=== PATIENT | female | born 2000 | race Hispanic/Latino ===

== ENCOUNTER 2021-05-28 15:55 | Emergency (ER) | payer MEDICAID, SELFPAY ==
--- NOTE | 2021-05-28 15:59 | ED.URI ---
HPI - URI/Sore Throat General Chief Complaint: Upper Respiratory Infection Stated Complaint: sob/sweats/headache Time Seen by Provider: 05/28/21 16:08 Source: patient and RN notes reviewed Mode of arrival: ambulatory Limitations: no limitations History of Present Illness HPI Narrative: 21-year-old female presents with concern for 4-day history of body aches, cough, chest congestion, rhinorrhea, nasal congestion, headache. Reports shortness of breath with coughing. She reports she has been vaccinated for Covid. She denies current shortness of breath, loss of sense of taste or smell. MD elicited complaint: cough Related Data Home Medications Medication Instructions Recorded Confirmed etonogestrel [Nexplanon] 1 implant SUBDERMAL ONCE 05/28/21 05/28/21 fluoxetine [Prozac] 40 mg PO DAILY 05/28/21 05/28/21 Allergies Allergy/AdvReac Type Severity Reaction Status Date / Time No Known Allergies Allergy Verified 05/28/21 16:01 Review of Systems Review of Systems: Narrative: CONSTITUTIONAL: Reports malaise, chills, sweats EYES: Denies visual changes, redness, or discharge. ENT: Reports rhinorrhea, congestion. Denies sinus pain, otalgia and sore throat. CARDIOVASCULAR: Denies chest pain, palpitations, or edema. RESPIRATORY: Reports cough, occasional dyspnea. GASTROINTESTINAL: Denies abdominal pain, nausea, vomiting, diarrhea SKIN: Denies rash or itching. MUSCULOSKELETAL: Reports myalgia. NEUROLOGIC: Reports headache. All systems reviewed & are unremarkable except as noted in HPI and below PMFSH Comments At time of signature, agree with nursing past medical, surgical, social and family history. There is no relevant family history pertinent to the presenting complaint Exam Narrative: Exam Narrative: GENERAL: Well-appearing, well-nourished, and in no acute distress. HEAD: Normocephalic EYES: PERRLA, conjunctivae clear ENT: Nares clear, turbinates edematous and erythematous, clear discharge. Mucous membranes moist. TM pearly craven with dull light reflex bilaterally; no tragal tenderness. Oropharynx erythematous without lesions. Tonsils enlarged and without exudate, no drooling, no hoarseness, no trismus, uvula midline. NECK: Supple. No lymphadenopathy CHEST: Clear to auscultation, breath sounds equal. No wheezing, rhonchi, rales, or stridor. No respiratory distress, speaks in full sentences. HEART: Regular rate and rhythm. No murmur heard. SKIN: Warm, dry, no rash. NEURO: Alert and oriented x3. PSYCH: Normal mood and affect Course Course Emergency Course: Patient is aware of diagnosis, understands and agrees to treatment plan. Anticipatory guidance given. Patient agrees to follow-up as directed and is aware of reasons to seek care at the emergency department. Portions of this record may have been created with voice recognition software Vital Signs Vital signs: Reviewed. MDM - URI/Sore Throat MDM Narrative Medical decision making narrative: Differential diagnosis considered: Bryan virus, strep pharyngitis, allergic rhinitis, upper respiratory tract infection, sinusitis, rhinosinusitis, nasopharyngitis. viral pharyngitis, otitis media, otitis externa, pneumonia, bronchitis, viral cough syndrome, viral syndrome, and influenza. Exam findings show no acute concerns or changes; patient is non-toxic appearing and is in no distress. Patient is appropriate for outpatient treatment and follow-up. Lab Data Attestation: I reviewed the patient's lab results. Critical Care Time Critical Care Time Critical Care Time: No Discharge Plan Discharge Clinical Impression: Bronchitis Patient Disposition: Home, Self-Care Condition: Stable Instructions: Viral Syndrome (ED) Additional Instructions: Your Rapid COVID test was negative today. -Your symptoms are likely caused by a virus, and antibiotic does not cure viral illness. -Take strict precautions to prevent the spread of your virus. Be diligent about covering your cough (even
[2021-05-28 16:02] VITALS: BP 104/73; PULSE 111; RESP 16; TEMP 37.1; O2SAT 100
== END 2021-05-28 16:25 | disposition home or self-care (01) ==
PROVIDERS: Emergency Provider Nurse Practitioner
DX: J40 Bronchitis, not specified as acute or chronic (principal); Z20.822 Contact with and (suspected) exposure to COVID-19
CPT/HCPCS: 87426; 99213; C9803; G0463

== ENCOUNTER 2021-05-29 13:46 | Emergency (ER) | payer MEDICAID, SELFPAY ==
[2021-05-29] VITALS (13 sets, daily range): BP systolic 100–110; BP diastolic 61–70; PULSE 80–110; RESP 12–18; TEMP 36.6; O2SAT 97–100
[2021-05-29] MEDS: KETOROLAC 30 MG/ML VIAL (*BKC) IV PUSH (14:20)
[2021-05-29] MEDS: ONDANSETRON INJ 4 MG/2 ML VIAL IV PUSH (14:20)
[2021-05-29] MEDS: SODIUM CHLORIDE 0.9% IV 1,000 ML 999 ML IV CONT (14:20)
--- NOTE | 2021-05-29 14:38 | ED.GENADULT ---
HPI - General Adult General Chief complaint: Headache Stated complaint: n/v Time Seen by Provider: 05/29/21 13:52 Source: patient and RN notes reviewed Mode of arrival: ambulatory Limitations: no limitations History of Present Illness HPI narrative: Patient is a 21-year-old female who presents to emergency department for evaluation of headache with congestion rhinorrhea nonproductive cough has had some emesis this has been going on for several days was seen at urgent care yesterday diagnosed with upper respiratory infection discharged home with medications but continues to not feel well patient notes she was fully vaccinated for COVID-19 denies any sick contacts or other complaints Related Data Home Medications Medication Instructions Recorded Confirmed etonogestrel [Nexplanon] 1 implant SUBDERMAL ONCE 05/28/21 05/28/21 fluoxetine [Prozac] 40 mg PO DAILY 05/28/21 05/28/21 Allergies Allergy/AdvReac Type Severity Reaction Status Date / Time No Known Allergies Allergy Verified 05/29/21 13:53 Review of Systems Review of Systems: All systems reviewed & are unremarkable except as noted in HPI and below PMFSH Social History Social History (Updated 05/29/21 @ 14:40 by Josep Valle PA-C) Smoking status: Never smoker Gender identity (if verbalized by the patient): Female Exam Narrative: Exam Narrative: GENERAL: Ill-appearing, well-nourished, and in no acute distress. HEAD: Normocephalic, atraumatic. EYES: PERRLA and EOMI. ENT: Nares clear, no rhinorrhea or epistaxis. Mucous membranes moist. Oropharynx without tonsillar hypertrophy exudate or other lesions. Bilateral TMs pearly craven nonbulging NECK: Supple. No adenopathy or masses. CHEST: Clear to auscultation. No respiratory distress. No wheezes rales or rhonchi HEART: Regular rate and rhythm. No murmur heard. Normal peripheral pulses. ABDOMEN: Soft, nontender, nondistended EXTREMITIES: Normal range of motion. No edema. SKIN: Warm, dry, no rash. NEURO: No focal deficits. Alert and oriented x3. Cranial nerves II through XII grossly intact PSYCH: Normal mood and affect. Course Course Emergency Course: Patient hydrated evaluated the emergency department resting comfortably at this time feeling better with medications will be discharged home provided with follow-up with primary care agreeing to do so ABCs and vital signs intact and stable Vital Signs Vital signs: Vital Signs Temperature 97.9 F 05/29/21 13:51 Pulse Rate 110 H 05/29/21 13:51 Respiratory Rate 18 05/29/21 13:51 Blood Pressure 110/70 05/29/21 13:51 Pulse Oximetry 99 05/29/21 13:51 Temperature 97.9 F 05/29/21 13:51 Pulse Rate 110 H 05/29/21 13:51 Respiratory Rate 18 05/29/21 13:51 Blood Pressure 110/70 05/29/21 13:51 Pulse Oximetry 99 05/29/21 13:51 Medical Decision Making MDM Narrative Medical decision making narrative: Patient in the room no distress aware of case findings treatment plan diagnosis agreeing to follow-up as instructed will return if symptoms worsen or concerns Vital Signs Vital Signs: Vital Signs Temperature 97.9 F 05/29/21 13:51 Pulse Rate 110 H 05/29/21 13:51 Respiratory Rate 18 05/29/21 13:51 Blood Pressure 110/70 05/29/21 13:51 Pulse Oximetry 99 05/29/21 13:51 Temperature 97.9 F 05/29/21 13:51 Pulse Rate 110 H 05/29/21 13:51 Respiratory Rate 18 05/29/21 13:51 Blood Pressure 110/70 05/29/21 13:51 Pulse Oximetry 99 05/29/21 13:51 Lab Data Labs: Lab Results 05/29/21 Range/Units 14:36 Urine Color Yellow (Yellow) Urine Appearance Clear (Clear) Urine pH 6.0 (5.0-9.0) Ur Specific [place] 1.009 (1.001-1.035) Urine Protein 1+ H (Negative) mg/dL Urine Glucose (UA) Negative (Negative) mg/dL Urine Ketones 2+ H (Negative) mg/dL Ur Blood (Man) Negative (Negative) Urine Nitrate Negative (Negative) Urine Bilirubin Negative (Negative) Urine Urobilinogen Negat
[2021-05-29 14:47] LABS: Add Urine Microscopic? YES; Appearance Urine Clear (Clear); Bacteria Urine Trace /hpf; Bilirubin Urine Negative (Negative); Blood Urine Negative (Negative); Color Urine Yellow (Yellow); Glucose Urine UA Negative (Negative); Ketones Urine 2+ mg/dL (Negative); Leukocyte Esterase Ur Trace LEU/UL (Negative); Mucus Urine Few /lpf; Nitrate Urine Negative (Negative); Protein Urine 1+ mg/dL (Negative); RBC Urine 0-2 /hpf (0-2); Specific Grav Ur 1.009 (1.001-1.035); Squamous Epithelial Cell Urine Moderate /hpf (Few); Urobilinogen Urine Negative mg/dL (<2.0)
== END 2021-05-29 16:31 | disposition home or self-care (01) ==
PROVIDERS: Emergency Medicine Emergency Medical Services; Emergency Provider Emergency Medicine
DX: R51.9 Headache, unspecified (principal)
CPT/HCPCS: 81001; 81025; 87804; 96361; 96374; 96375; 99284; J1885; J2405; J7030

== ENCOUNTER 2021-05-31 00:03 | Observation (INO) | payer MEDICAID, SELFPAY ==
[2021-05-31] VITALS (13 sets, daily range): BP systolic 104–130; BP diastolic 63–75; PULSE 83–113; RESP 16–40; TEMP 36.2–37.4; O2SAT 94–100; BMI 22.7
--- NOTE | ~2021-05-31 | CT_ITS ---
EXAMINATION: CTA chest PE abdomen pel DATE: 05/31/2021 03:15 INDICATION: Chest pain, abdominal pain, nausea and vomiting. Elevated white blood cell count of 22,00 0. TECHNIQUE: Computed tomography angiography (CTA) of the chest was performed with 100 mL Omnipaque-350 intravenous contrast timed to evaluate the pulmonary arteries. Coronal maximum intensity projection 3D-reconstructions were created by the technologist. Automated exposure control and iterative reconst ruction technique were employed. Exam dose: 470.35 mGy-cm total exam DLP. COMPARISON: None. FINDINGS: There is moderate opacification the pulmonary arteries and no evidence of pulmonary embolis m. No thoracic aortic aneurysm or dissection is evident. Normal heart size. No pericardial or pleural ef fusion. Mild hilar and mediastinal lymph node prominence may be reactive, with diffuse bilateral pulmonary gr oundglass infiltrates noted. Normal morphology of the adrenal glands. Included upper abdominal structures are unremarkable. Included skeletal structures are unremarkable. IMPRESSION: No evidence of pulmonary embolism Diffuse bilateral pulmonary groundglass infiltrates, suggesting infectious or inflammatory process Reviewed, dictated and finalized at [facility] Reviewed, dictated and finalized at [facility]. IMPRESSION: No evidence of pulmonary embolism Diffuse bilateral pulmonary groundglass infiltrates, suggesting infectious or i nflammatory process
[2021-05-31 00:24] LABS: Basophils Absolute Auto 0.1 K/mm3 (0.0-0.1); Basophils Percent Auto 0.3 % (0.2-1.2); Hemoglobin 12.5 g/dL (12.0-15.0); Immature Granulocyte Absolute 0.18 K/mm3 (0.00-0.031); Immature Granulocyte Percent A 0.8 % (0-0.5); Lymphocytes Absolute Auto 1.02 K/mm3 (0.9-3.2); Lymphocytes Percent Auto 4.5 % (18.3-44.2); Mean Corpuscular HGB Conc 32.9 g/dl (32-36); Mean Corpuscular Hemoglobin 29.9 pg (26-34); Mean Corpuscular Volume 90.9 fl (80-100); Mean Platelet Volume 9.2 fl (7.4-10.4); Monocytes Absolute Auto 0.4 K/mm3 (0.1-0.6); Monocytes Percent Auto 1.5 % (2.6-8.5); Neutrophils Percent Auto 92.9 % (45.5-73.1); Platelet Count Result 376 k/mm3 (150-375); Red Blood Count 4.18 M/mm3 (4.2-5.4); Red Cell Distribution Width 12.8 % (11.5-14.5); White Blood Count 22.6 K/mm3 (4.5-10.0)
[2021-05-31 00:45] LABS: Alanine Aminotransferase 20 U/L (4-35); Albumin Level 4.3 g/dL (3.5-5.1); Alkaline Phosphatase 160 U/L (38-126); Anion Gap 12 mmol/L (8-16); Aspartate Amino Transferase 54 U/L (14-36); Bilirubin,Total 1.6 mg/dL (0.2-1.3); Blood Urea Nitrogen 3 mg/dL (7-17); Calcium 9.4 mg/dL (8.4-10.2); Carbon Dioxide 29 mmol/L (22-30); Chloride 94 mmol/L (98-107); Estimated CRCL calculation 127 ml/min; Estimated Glomerular Filt Rate > 60; Glucose 112 mg/dL (65-105); Lipase 39 U/L (23-300); Sodium 135 mmol/L (137-145)
[2021-05-31 02:20] LABS: Add Urine Microscopic? YES; Appearance Urine Clear (Clear); Bacteria Urine Trace /hpf; Bilirubin Urine Negative (Negative); Blood Urine Negative (Negative); Color Urine Yellow (Yellow); Glucose Urine UA Negative (Negative); Ketones Urine Trace mg/dL (Negative); Leukocyte Esterase Ur Negative LEU/UL (Negative); Mucus Urine Rare /lpf; Nitrate Urine Negative (Negative); Protein Urine Negative (Negative); RBC Urine 0-2 /hpf (0-2); Specific Grav Ur 1.004 (1.001-1.035); Squamous Epithelial Cell Urine Rare /hpf (Few)
[2021-05-31] MEDS: ONDANSETRON INJ 4 MG/2 ML VIAL IV PUSH (02:56)
[2021-05-31] MEDS: KETOROLAC 30 MG/ML VIAL (*BKC) IV PUSH (02:56)
[2021-05-31] MEDS: SODIUM CHLORIDE 0.9% IV 1,000 ML 999 ML IV CONT ×2 (02:56→04:10)
[2021-05-31 03:51] LABS: Lactic Acid Reflex 0.8 mmol/L (0.7-2.1)
--- NOTE | 2021-05-31 04:04 | PC.NURSE ---
1000 mL of IV Normal Saline ordered per EDP Henrique verbal order read back.
--- NOTE | 2021-05-31 04:10 | PC.NURSE ---
updated pt and family member. no requests at this time. pt states she is feeling better.
--- NOTE | 2021-05-31 05:09 | ED.GENADULT ---
HPI - General Adult General Chief complaint: Nausea/Vomiting/Diarrhea Stated complaint: nausea/ headache Time Seen by Provider: 05/31/21 02:15 History of Present Illness HPI narrative: Patient 21-year-old female who presents the emergency department with chief complaint of nausea vomiting generalized malaise and body aches. Patient was seen at [facility] and then seen in the emergency department after she had had a headache and nausea and vomiting. Patient was originally treated for bronchitis by the medical center and has been on steroids the patient has been having nausea vomiting and not able to take down the medications. The patient states that she has had a headache that is worse whenever she coughs has been coughing and not able to control the coughing at home. Patient reports that she has not had any diarrhea. Patient had a rapid Covid test done at [facility] that was negative Related Data Home Medications Medication Instructions Recorded Confirmed etonogestrel [Nexplanon] 1 implant SUBDERMAL ONCE 05/28/21 05/31/21 fluoxetine [Prozac] 40 mg PO DAILY 05/28/21 05/31/21 Allergies Allergy/AdvReac Type Severity Reaction Status Date / Time No Known Allergies Allergy Verified 05/31/21 02:00 Review of Systems Review of Systems: Narrative: A 10 system review of systems was completed on the patient and is negative except for what is stated in the HPI. Nursing and ancillary documentation was reviewed. [facility] Family History Family History (Updated 05/31/21 @ 06:35 by Rachel Dong RN) Other Unknown family medical history Social History Social History Smoking status: Current some day smoker Tobacco type: cigarettes Alcohol intake: never Substance use: never Gender identity (if verbalized by the patient): Female Spiritual care concerns: No Exam Narrative: Exam Narrative: GENERAL: Well-appearing, well-nourished, and in no acute distress. HEAD: Normocephalic, atraumatic. EYES: PERRLA and EOMI. ENT: Nares clear, no rhinorrhea or epistaxis. Mucous membranes moist. NECK: Supple. CHEST: Clear to auscultation. No respiratory distress. HEART: Regular rate and rhythm. No murmur heard. Normal peripheral pulses. ABDOMEN: Soft, nontender, nondistended, normal active bowel sounds. EXTREMITIES: Normal range of motion. No edema. SKIN: Warm, dry, no rash. NEURO: No focal deficits. Alert and oriented x3. PSYCH: Normal mood and affect. Course Course Emergency Course: Patient received IV fluids antiemetics and ketorolac in the emergency department. Because the patient had abdominal discomfort and has had persistent nausea and vomiting helical imaging was obtained since the patient also had discomfort in her chest and continual cough and the patient was already in CT CT chest was showing evidence of diffuse patchy groundglass opacities consistent with infection CT scan of the abdomen pelvis showed evidence of fluid and gas-filled small bowel consistent with ileus versus enteritis Vital Signs Vital signs: Vital Signs Temperature 36.3 C L 05/31/21 00:08 Pulse Rate 113 H 05/31/21 00:08 Respiratory Rate 16 05/31/21 00:08 Blood Pressure 126/65 05/31/21 00:08 Pulse Oximetry 97 05/31/21 00:08 Temperature 36.2 C L 05/31/21 06:16 Pulse Rate 94 05/31/21 06:16 Respiratory Rate 18 05/31/21 06:16 Blood Pressure 114/66 05/31/21 06:16 Pulse Oximetry 94 05/31/21 06:16 Medical Decision Making Vital Signs Vital Signs: Vital Signs Temperature 36.3 C L 05/31/21 00:08 Pulse Rate 113 H 05/31/21 00:08 Respiratory Rate 16 05/31/21 00:08 Blood Pressure 126/65 05/31/21 00:08 Pulse Oximetry 97 05/31/21 00:08 Temperature 36.2 C L 05/31/21 06:16 Pulse Rate 94 05/31/21 06:16 Respiratory Rate 18 05/31/21 06:16 Blood Pressure 114/66 05/31/21 06:16 Pulse Oximetry 94 05/31/21 06:16 Lab Data Resu
--- NOTE | 2021-05-31 05:27 | PM.IMHP ---
H&P: HPI History of Present Illness Date/Time: 05/31/21 05:27 Chief Complaint: Body aches, generalized weakness Narrative: Patient 21-year-old female who presents the emergency department with chief complaint of nausea vomiting generalized malaise and body aches. the symptoms started since May 26. Patient was seen at [facility] on May 28 And was given Medrol Dosepak for bronchitis. She was tested for COVID which came back negative. Subsequently she was then seen in this ED for similar symptoms and was discharged for home care for viral syndrome. She comes back again today with worsening symptoms of nausea vomiting not able to take medication and headache which gets worse whenever she coughs. She also complains of feeling short of breath. She has not noted to be hypoxic however she is noted to be tachypneic and was tachycardic on admission. On evaluation in the ED she was noted to have severe leukocytosis at 22,[address] chest,abdomen and pelvis with bilateral patchy ground-glass opacities consistent with pneumonia. She is getting admitted for further evaluation and treatment. She is reswabbed for COVID in the ED. Review of Systems Review of Systems: Narrative: - CONSTITUTIONAL: Denies weight loss, reports fever and chills. - HEENT: Denies changes in vision and hearing - RESPIRATORY: reports SOB and cough. - CV: Denies palpitations and CP. - GI: Denies abdominal pain, reports nausea, vomiting and denies diarrhea. - : Denies dysuria and urinary frequency. - MSK: reports myalgia and denies joint pain. - SKIN: Denies rash and pruritus. - NEUROLOGICAL: reports headache and denies syncope. - PSYCHIATRIC: Denies recent changes in mood. Denies anxiety and depression. All systems reviewed & are unremarkable except as noted in HPI and below Constitutional: Constitutional: Reports fatigue and Reports weakness Neurologic: Reports weakness Endocrine: Endocrine: Reports fatigue [facility] Family History Family History (Updated 05/31/21 @ 06:35 by Rachel Dong RN) Other Unknown family medical history Social History Social History Smoking status: Never smoker Gender identity (if verbalized by the patient): Female Meds Home Medications and Allergies Home Medications Medication Instructions Recorded Confirmed Type etonogestrel [Nexplanon] 1 implant SUBDERMAL ONCE 05/28/21 05/28/21 History fluoxetine [Prozac] 40 mg PO DAILY 05/28/21 05/28/21 History methylprednisolone [Medrol ([place])] See Rx Instructions .ROUTE 05/28/21 Rx .COMPLEX #21 each promethazine-DM 5 ml PO Q4-6H PRN #120 ml 05/28/21 Rx famotidine [Pepcid] 20 mg PO BID #14 tablet 05/29/21 Rx loratadine [Claritin] 10 mg PO DAILY PRN #10 tablet 05/29/21 Rx promethazine 25 mg PO QID PRN #10 tablet 05/29/21 Rx Allergies Allergy/AdvReac Type Severity Reaction Status Date / Time No Known Allergies Allergy Verified 05/31/21 02:00 Vital Signs Vital Signs - 24 hr 05/31/21 00:08 05/31/21 01:37 05/31/21 03:17 Temperature 97.3 F L 99.4 F Pulse Rate 113 H 102 H 102 H Respiratory Rate 16 29 H 31 H Blood Pressure 126/65 130/67 Pulse Oximetry 97 98 97 05/31/21 03:28 05/31/21 04:07 Temperature Pulse Rate 95 89 Respiratory Rate 40 H 22 H Blood Pressure 114/63 104/64 Pulse Oximetry 97 100 Exam Narrative: Exam Narrative: GENERAL: Well-appearing, well-nourished, and in no acute distress. HEAD: Normocephalic, atraumatic. EYES: PERRLA and EOMI. ENT: Nares clear, no rhinorrhea or epistaxis. Mucous membranes moist. NECK: Supple. CHEST: Clear to auscultation. Tachypneic not in severe respiratory distress HEART: Regular rate and rhythm. No murmur heard. Normal peripheral pulses. ABDOMEN: Soft, nontender, nondistended, normal active bowel sounds. EXTREMITIES: Normal range of motion. No edema. SKIN: Warm, dry, no rash. NEURO: No focal deficits. A
--- NOTE | 2021-05-31 05:31 | PC.NURSE ---
PO challenged pt. pt kept water down but states it made her feel nauseas.
[2021-05-31 07:54] LABS: D Dimer 2.08 ug/mL (<0.48)
[2021-05-31 07:57] LABS: Lactate Dehydrogenase 990 U/L (313-618); Magnesium 2.1 mg/dL (1.6-2.3)
[2021-05-31] MEDS: SODIUM CHLORIDE 0.9% IV 1,000 ML 125 ML IV CONT (08:39)
[2021-05-31] MEDS: DEXAMETHASONE SOD PHOS INJ 4 MG/ML VIAL 6 MG IV PUSH (08:43)
[2021-05-31 08:44] LABS: Procalcitonin 0.3 ng/mL
--- NOTE | 2021-05-31 11:32 | PC.NURSE ---
Pt unhooked her IV, after being told to take IV with her to the bathroom. She had removed end of IV, so was bleeding down her arm, and was yelling and crying because she was bleeding. Pt had potassium running at 50ml/hr, and pt began to cry and yell that she couldn't take it. Turned it down twice and pt continued to yell and cry. Tried to run NS, and pt began to scream it is killing her. IV flushes, and there is no evidence of IV being infiltrated or any problems with IV. Pt continues to cry stating that people are always mean to her, and that so far we have treated her nicely. Pt refused to allow IV to be hooked back up or a new one started at this time. Notifying HARRY Simmons.
[2021-05-31 12:12] LABS: Anion Gap 7 mmol/L (8-16); Bilirubin,Total 1.1 mg/dL (0.2-1.3); Blood Urea Nitrogen 4 mg/dL (7-17); Calcium 8.7 mg/dL (8.4-10.2); Carbon Dioxide 29 mmol/L (22-30); Chloride 100 mmol/L (98-107); Estimated CRCL calculation 150 ml/min; Estimated Glomerular Filt Rate > 60; Glucose 136 mg/dL (65-105); Potassium 3.1 mmol/L (3.4-5.0); Sodium 136 mmol/L (137-145)
[2021-05-31 12:13] LABS: Alanine Aminotransferase 19 U/L (4-35); Albumin Level 3.8 g/dL (3.5-5.1); Alkaline Phosphatase 141 U/L (38-126); Aspartate Amino Transferase 44 U/L (14-36)
--- NOTE | 2021-05-31 12:40 | PM.IMPN ---
Progress Note: A&P Assessment and Plan (1) Sepsis: Code(s): A41.9 - Sepsis, unspecified organism Status: Acute Assessment and Plan: The patient is a 21-year-old woman with a history of depression, who presented to the emergency room with increased malaise, body aches, nausea, vomiting, and coughwhich began on 05/26/2021. She went to a local urgent care on 05/28/2021 was given a Medrol dose pack for possible bronchitis. she continued to have symptoms so she came back to the emergency room 05/29/21 where she had a negative COVID swab and was prescribed Claritin, promethazine for nausea, and famotidine. The patient continued to have symptoms of came back to the emergency room on 05/30/2021, Where she was found to have leukocytosis, tachycardia, tachypnea and had a CTA of her chest, abdomen and pelvis which found no PE, diffuse bilateral pulmonary ground-glass infiltrates, suggesting infectious or inflammatory process. she was admitted in the hospital for sepsis in the setting of pneumonia. Started on IV antibiotics, IV fluid hydration and further monitoring. She was also reswabbed walked for COVID which is still pending at this time and in isolation. Patient's vitals are stable today other than some tachypnea, 100% oxygen on room air. Continue IV antibiotics Will recheck labs in the morning Blood cultures pending Ordered Respiratory culture, not collected D-dimer, LDH elevated , ferritin high normal continue monitoring vitals and leukocytosis. Bronchodilators scheduled and p.r.n. (2) Pneumonia: Qualifiers: Laterality: bilateral Lung location: unspecified part of lung Pneumonia type: due to unspecified organism Qualified Code(s): J18.9 - Pneumonia, unspecified organism Code(s): J18.9 - Pneumonia, unspecified organism Status: Acute Assessment and Plan: continue IV antibiotics. She was also started on dexamethasone for treatment of possible COVID continue monitoring. (3) Leukocytosis: Qualifiers: Leukocytosis type: unspecified Qualified Code(s): D72.829 - Elevated white blood cell count, unspecified Code(s): D72.829 - Elevated white blood cell count, unspecified Status: Acute Assessment and Plan: See above under sepsis (4) Hypokalemia: Code(s): E87.6 - Hypokalemia Status: Acute Assessment and Plan: Most likely due to nausea, vomiting, and decreased appetite trying to supplement with IV potassium but it caused too much burning to her IV. I will switch this to oral potassium 40 mEq and recheck in the morning. Continue monitoring. (5) Ileus: Code(s): K56.7 - Ileus, unspecified Status: Acute Assessment and Plan: Had bowel movement. Resolved. (6) Intractable nausea and vomiting: Code(s): R11.2 - Nausea with vomiting, unspecified Status: Acute Assessment and Plan: Resolved at this time. PRN antiemetics. (7) Suspected COVID-19 virus infection: Code(s): Z20.822 - Contact with and (suspected) exposure to COVID-19 Status: Acute Assessment and Plan: Was vaccinated with [employer]. Swabbed pending. Isolated. Time Spent With Patient Time with patient: 25 - 35 minutes Subjective Date/time seen: 05/31/21 12:40 Interval history: Date of Service 05/31/21: The patient reports feeling better than when she came into the hospital. She is breathing better, has some more energy today. She did have a bowel movement. she does report chills. she denies any more nausea or vomiting at this time. She is t
[2021-05-31] MEDS: FLUoxetine HCL 20 MG CAPSULE 40 MG PO (13:44)
[2021-05-31] MEDS: POTASSIUM CHLORIDE 20 MEQ TABLET 40 MEQ PO (13:44)
[2021-05-31] MEDS: PANTOPRAZOLE 40 MG TABLET PO (13:44)
[2021-05-31 16:16] LABS: SARS-CoV-2 RNA PCR Negative
[2021-05-31] MEDS: BENZOCAINE/MENTHOL (*BKC) 18 EA LOZENGE 1 LOZENGE PO (19:40)
[2021-05-31] MEDS: guaiFENesin/DEXTROMETHORPHAN 10 ML UDC 5 ML PO (19:40)
[2021-06-01 06:00] VITALS: BP 108/76; PULSE 86; RESP 18; TEMP 36.3; O2SAT 96
[2021-06-01] MEDS: levoFLOXacin 750 MG TABLET PO (06:08)
[2021-06-01] MEDS: BENZONATATE 100 MG CAPSULE PO (06:09)
[2021-06-01 06:17] LABS: Basophils Absolute Auto 0.1 K/mm3 (0.0-0.1); Basophils Percent Auto 0.2 % (0.2-1.2); Hematocrit 32.6 % (37.0-47.0); Immature Granulocyte Absolute 0.29 K/mm3 (0.00-0.031); Lymphocytes Absolute Auto 0.65 K/mm3 (0.9-3.2); Lymphocytes Percent Auto 2.3 % (18.3-44.2); Mean Corpuscular HGB Conc 33.7 g/dl (32-36); Mean Corpuscular Volume 88.8 fl (80-100); Mean Platelet Volume 9.4 fl (7.4-10.4); Monocytes Absolute Auto 0.6 K/mm3 (0.1-0.6); Monocytes Percent Auto 2.1 % (2.6-8.5); Neutrophils Absolute Auto 26.8 K/mm3 (1.3-6.7); Neutrophils Percent Auto 94.4 % (45.5-73.1); Platelet Count Result 388 k/mm3 (150-375); Red Blood Count 3.67 M/mm3 (4.2-5.4); Red Cell Distribution Width 12.8 % (11.5-14.5); White Blood Count 28.4 K/mm3 (4.5-10.0)
[2021-06-01 06:28] LABS: Anion Gap 9 mmol/L (8-16); Blood Urea Nitrogen 5 mg/dL (7-17); Carbon Dioxide 29 mmol/L (22-30); Chloride 105 mmol/L (98-107); Estimated CRCL calculation 150 ml/min; Estimated Glomerular Filt Rate > 60; Glucose 130 mg/dL (65-105); Magnesium 2.5 mg/dL (1.6-2.3); Potassium 3.6 mmol/L (3.4-5.0); Sodium 143 mmol/L (137-145)
[2021-06-01] MEDS: LORATADINE 10 MG TABLET PO (08:51)
[2021-06-01] MEDS: FLUoxetine HCL 20 MG CAPSULE 40 MG PO (08:51)
[2021-06-01] MEDS: ACETAMINOPHEN 325 MG TABLET 650 MG PO (08:51)
[2021-06-01] MEDS: SACCHAROMYCES BOULARDII 250 MG CAPSULE PO (08:52)
[2021-06-01] MEDS: PANTOPRAZOLE 40 MG TABLET PO (08:53)
[2021-06-01] MEDS: guaiFENesin/DEXTROMETHORPHAN 10 ML UDC 5 ML PO (09:08)
--- NOTE | 2021-06-01 10:31 | PC.NURSE ---
Pt has been A&O x 4, however becomes very tearful and child like. She randomly jumps from subject to subject. Pt will be screaming one min and talking like a small child the next. Pt continues to refuse an IV, however will take pills. Pt is very emotional and is difficult to re-direct and keep on task.
[2021-06-01] MEDS: IBUPROFEN 600 MG TABLET PO (10:47)
[2021-06-01 11:02] LABS: Lactate Dehydrogenase 1128 U/L (313-618)
[2021-06-01 14:00] VITALS: BP 122/67; PULSE 72; RESP 20; TEMP 36.2; O2SAT 99
--- NOTE | 2021-06-01 15:48 | PM.DS ---
DS: Admitting Diagnosis Admitting Diagnosis Admitting Diagnosis: Weakness DS: Discharge Diagnosis Discharge Diagnosis (1) Sepsis: Code(s): A41.9 - Sepsis, unspecified organism Status: Acute Assessment and Plan: The patient is a 21-year-old woman with a history of depression, who presented to the emergency room with increased malaise, body aches, nausea, vomiting, and coughwhich began on 05/26/2021. She went to a local urgent care on 05/28/2021 was given a Medrol dose pack for possible bronchitis. she continued to have symptoms so she came back to the emergency room 05/29/21 where she had a negative COVID swab and was prescribed Claritin, promethazine for nausea, and famotidine. The patient continued to have symptoms of came back to the emergency room on 05/30/2021, Where she was found to have leukocytosis, tachycardia, tachypnea and had a CTA of her chest, abdomen and pelvis which found no PE, diffuse bilateral pulmonary ground-glass infiltrates, suggesting infectious or inflammatory process. she was admitted in the hospital for sepsis in the setting of pneumonia. Started on IV antibiotics, IV fluid hydration and further monitoring. She was also reswabbed for COVID and came back negative. the patient is feeling much better today. Her vitals remained stable, afebrile, blood pressure 122/67, non tachycardic at 72 beats per minute, oxygenation normal 99% on room air, non tachycardic. The patient was stable with her medications being switched to p.o. since she had issues with her IV. She is eating and drinking without any issues. She has more strength. she still having a few loose stools but this is most likely due to the antibiotics and I started a probiotic. Her labs showed increasing leukocytosis and neutrophil count but she was also on dexamethasone which was started by the admitting provider because of the concerns of COVID-19. She otherwise appears to be improved overall, feeling better, smiling with stable vitals. Blood cultures are negative to date. Ordered Respiratory culture, not collected since she has a dry cough. LDH, CRP. She also has slight elevation of her AST and alk-phos. normal lactic acid level and procalcitonin. Based on the patient's labs, CT chest on arrival, nonproductive cough, pain with deep inspiration, this all clinically looks like COVID-19. I explained to the patient and her boyfriends grandmother, Sam, with the patients permission, that she does appear to have an atypical pneumonia and there are some concerns for COVID. I do recommend isolating for 10 days from when symptoms started which was 05/26/2021. I explained she needs to get a pulse oximeter to continue monitoring her oxygen saturations. I will continue her on antibiotics for total of 7 days, she already has a prescription for a Medrol Dosepak which I told her to complete, she also has promethazine that was prescribed prior in [place] she has nausea. She understands the need to continue drinking plenty of fluids, eating well and stain active to prevent any blood clots from forming. The patient understands, agrees with the plan all questions answered. She was given a work note. The patient has plans to be isolated once discharged. (2) Pneumonia: Qualifiers: Laterality: bilateral Lung location: unspecified part of lung Pneumonia type: due to unspecified organism Qualified Code(s): J18.9 - Pneumonia, unspecified organism Code(s): J18.9 - Pneumonia, unspecified organism Status: Acute Assessment and Plan: (3) Leukocytosis: Qualifiers: Leukocytosis type: unspecified Qualified Code(s): D72.829 - Elevated white blood cell count, unspecified Code(s): D72.829 - Elevated white blood cell count, unspecified Status: Acute Assessment and Plan:
--- NOTE | 2021-06-01 17:02 | PC.NURSE ---
Pt is being discharged. Pt's IV was removed yesterday. Discharge paperwork was reviewed with the pt and her mother, and both exhibited good understanding of discharge instructions. Pt will be assisted to the front, in a wheelchair, by staff.
== END 2021-06-01 17:45 | disposition home or self-care (01) ==
LOC: ANHED 05:17 → ANH3MEDSUR 05:28
PROVIDERS: Physician Assistant; Admitting Provider Internal Medicine; Emergency Provider Emergency Medicine; Visit Provider Internal Medicine
DX: A41.9 Sepsis, unspecified organism (principal); J18.9 Pneumonia, unspecified organism; D72.829 Elevated white blood cell count, unspecified; E87.6 Hypokalemia; R53.81 Other malaise; Z20.822 Contact with and (suspected) exposure to COVID-19
CPT/HCPCS: 36415; 71275; 74177; 80048; 80053; 81001; 81025; 82728; 83605; 83615; 83690; 83735; 84145; 85025; 85380; 86140; 87040; 96361; 96365; 96375; 99285; A9270; C9803; G0378; G0379; J0456; J0696; J1100; J1885; J2405; J3480; J7030; Q9967; U0003; U0005

== ENCOUNTER 2021-07-27 19:24 | Emergency (ER) | payer OTHER, SELFPAY ==
[2021-07-27 19:36] VITALS: BP 94/42; PULSE 103; RESP 16; TEMP 36.8; O2SAT 98
--- NOTE | 2021-07-27 19:36 | ED.GENADULT ---
HPI - General Adult General Chief complaint: Unspecified Stated complaint: HIP PAIN/HEADACHE Source: patient and RN notes reviewed Mode of arrival: ambulatory History of Present Illness HPI narrative: This is a 21-year-old female that was recently diagnosed with Covid back in May. Patient is here today complaining of bilateral hip pain and a chronic headache. Patient notes that she is been discharged from the hospital she has been experiencing this bilateral hip pain and chronic headaches. I explained to patient that this is probably due to side affects of Covid. The patient denies SOB, CP, palpitation, extremity numbness, lightheadedness, dizziness, constipation, diarrhea, chills, or fever. She has been taking ndtu-[id number]-[id number] headache medication once a day for the last couple days which has given her relief. She has not taken anything for her bilateral hip pain Related Data Home Medications Medication Instructions Recorded Confirmed Nexplanon 1 implant SUBDERMAL ONCE 05/28/21 05/31/21 fluoxetine [Prozac] 40 mg PO DAILY 05/28/21 05/31/21 Allergies Allergy/AdvReac Type Severity Reaction Status Date / Time No Known Allergies Allergy Verified 05/31/21 02:00 Review of Systems Review of Systems: A 14 organ system Review of Systems was performed and pertinent positives included in the HPI, otherwise remaining ROS is negative. [facility] Family History Family History Other Unknown family medical history Social History Social History Smoking status: Current some day smoker Tobacco type: cigarettes Alcohol intake: never Substance use: never Gender identity (if verbalized by the patient): Female Spiritual care concerns: No Exam Narrative: GENERAL: This is a well-nourished, well-developed patient, in no apparent distress. HEAD: normocephalic, atraumatic. EYES: PERRL. Sclera clear/white. Vision is grossly intact. EARS: External ears normal, auditory canals clear and without drainage, TMs normal without perforation. Hearing grossly intact. NOSE: External nose normal with no obvious nasal discharge, nares without redness, no rhinorrhea. THROAT: Mucous membranes moist, posterior pharynx clear. NECK: Neck supple, non-tender without lymphadenopathy, masses or thyromegaly. CARDIOVASCULAR: Regular rate and rhythm without murmurs, gallops, or rubs. RESPIRATORY: Clear to auscultation. Breath sounds equal bilaterally. No wheezes, rales, or rhonchi. GASTROINTESTINAL: Abdomen soft, non-tender, nondistended. Bowel sounds are active. No hepato-splenomegaly, or palpable masses. No guarding. SKIN: warm, intact with no suspicious lesions or rash, good texture and turgor. NEURO: awake, alert, and oriented to person, place and time. There were no obvious focal neurologic abnormalities. Steady gait EXTREMITIES: Normal range of motion. No edema. No calf tenderness. Negative Homans sign bilaterally. BACK: Nontender without deformity or crepitance. No flank tenderness. Course Course Emergency Course: Patient given Flexeril and instructed to continue her pgib-mpz-ahpelpy headache medication Vital Signs Vital signs: Vital Signs Temperature 98.2 F 07/27/21 19:36 Pulse Rate 103 H 07/27/21 19:36 Respiratory Rate 16 07/27/21 19:36 Blood Pressure 94/42 L 07/27/21 19:36 Pulse Oximetry 98 07/27/21 19:36 Temperature 98.2 F 07/27/21 19:36 Pulse Rate 103 H 07/27/21 19:36 Respiratory Rate 16 07/27/21 19:36 Blood Pressure 94/42 L 07/27/21 19:36 Pulse Oximetry 98 07/27/21 19:36 Medical Decision Making Differential Diagnosis Differential Diagnosis: Covid long jostin Vital Signs Vital Signs: Vital Signs Temperature 98.2 F 07/27/21 19:36 Pulse Rate 103 H 07/27/21 19:36 Respiratory Rate 16 07/27/21 19:36 Blood Pressure 94/42 L 07/27/21 19:36 Pulse Oximetry 98 07/27/21 19:36
== END 2021-07-27 19:58 | disposition home or self-care (01) ==
PROVIDERS: Emergency Provider Nurse Practitioner; PCP Internal Medicine
DX: R52 Pain, unspecified (principal); R51.9 Headache, unspecified; B94.8 Sequelae of other specified infectious and parasitic diseases; F17.210 Nicotine dependence, cigarettes, uncomplicated
CPT/HCPCS: 99213; G0463

== ENCOUNTER 2024-09-19 12:12 | Emergency (ER) | payer OTHER, SELFPAY ==
[2024-09-19 12:25] VITALS: BP 113/80; PULSE 95; RESP 18; TEMP 36.4; O2SAT 100
[2024-09-19 12:55] LABS: EDSTREPNEGPOS1 Negative (Negative)
--- NOTE | 2024-09-19 12:57 | ED_ITS ---
HPI - URI/Sore Throat General Chief Complaint: Upper Respiratory Infection Stated Complaint: Flu like symptoms/Poss strep Time Seen by Provider: 09/19/24 12:57 Source: patient Mode of arrival: ambulatory Limitations: no limitations History of Present Illness HPI Narrative: 24 yo F presents with c/o nasal congestion, sinus pressure, PND, fatigue for approx. 2 wks. Has had sore throat for 1 wk. Denies N/V. Afebrile. Had bodyaches but resolved. Taking dayquil to treat symptoms. all systems reviewed and negative except as noted above. Related Data Home Medications Medication Instructions Recorded Confirmed etonogestrel 68 mg subdermal 1 implant subdermal ONCE 05/28/21 05/31/21 implant (Nexplanon) fluoxetine 40 mg capsule (Prozac) 40 mg PO DAILY 05/28/21 05/31/21 Allergies Allergy/AdvReac Type Severity Reaction Status Date / Time No Known Allergies Allergy Verified 05/31/21 02:00 Review of Systems Review of Systems: CONSTITUTIONAL: Denies fever, chills, or sweats. reports fatigue. EYES: Denies visual changes, redness, or discharge. ENT: Reports rhinorrhea, congestion, Sinus pressure, sore throat. Denies otalgia. CARDIOVASCULAR: Denies chest pain, palpitations, or edema. RESPIRATORY: reports cough. Denies dyspnea. GASTROINTESTINAL: Denies abdominal pain, nausea, vomiting, or diarrhea. GENITOURINARY: Denies dysuria or hematuria. SKIN: Denies rash or itching. MUSCULOSKELETAL: Denies back pain, joint pain, or myalgia. NEUROLOGIC: Denies headache, numbness, or weakness. PSYCHIATRIC: Denies anxiety or depression. All other systems reviewed are negative, except as documented in HPI. [facility] Family History Family History Other Unknown family medical history Social History Social History Smoking status: Current some day smoker Tobacco type: cigarettes Alcohol intake: never Substance use: never Gender identity (if verbalized by the patient): Female Spiritual care concerns: No Comments At time of signature, agree with nursing past medical, surgical, social and family history. There is no relevant family history pertinent to the presenting complaint. Exam Narrative: GENERAL: This is a well-nourished, well-developed patient, in no apparent distress. HEAD: normocephalic, atraumatic. EYES: PERRL. Sclera clear/white. Vision is grossly intact. EARS: External ears normal, auditory canals clear and without drainage, TMs normal without perforation. Hearing grossly intact. NOSE: External nose normal with congestion, purulent nasal drainage, erythema swelling to bilateral nares. Frontal and maxillary sinus tenderness on palpation. THROAT: Mucous membranes moist, Erythema postnasal drainage. No swelling or exudates. NECK: Neck supple, non-tender without lymphadenopathy, masses or thyromegaly. CARDIOVASCULAR: Regular rate and rhythm without murmurs, gallops, or rubs. RESPIRATORY: Crackles to lower lung rajput at the bases. Breath sounds equal bilaterally. No wheezes, rales, or rhonchi. SKIN: warm, Dry, intact with no suspicious lesions or rash, good texture and turgor. NEURO: awake, alert, and oriented to person, place and time. There were no obvious focal neurologic abnormalities. EXTREMITIES: No joint tenderness, effusion, or edema noted. Course Course Level of Care: Express Care Visit Vital Signs Vital signs: Vital Signs Temperature 36.4 C L 09/19/24 12:25 Pulse Rate 95 09/19/24 12:25 Respiratory Rate 18 09/19/24 12:25 Blood Pressure 113/80 09/19/24 12:25 Pulse Oximetry 100 09/19/24 12:25 Oxygen Delivery Room Air 09/19/24 12:25 Temperature 36.4 C L 09/19/24 12:25 Pulse Rate 95 09/19/24 12:25 Respiratory Rate 18 09/19/24 12:25 Blood Pressure 113/80 09/19/24 12:25 Pulse Oximetry 100 09/19/24 12:25 Oxygen Delivery Room Air 09/19/24 12:25 Reviewed MDM - URI/Sore Throat MDM Narrative Medical decision making narrative: Patient is aware of diagnosis, understands and agrees to treatment plan. Anticipatory guidance given. Patient agrees to follow-up as directed and is aware of reasons to seek care at the emergency department. Portions of this record may have been created with voice recognition software negative rapid strep test. Will treat patient for bacterial sinusitis due to duration of symptoms and exam findings. Differential Diagnosis Differential diagnosis: Likely upper respiratory infection, sinusitis, viral infection and pharyngitis Lab Data Labs: Lab Results 09/19/24 Range/Units 12:40 POC Grp A Strep Screen Negative (Negative) Discharge Plan Discharge Clinical Impression: Acute bacterial sinusitis Patient Disposition: Home, Self-Care Condition: Stable Instructions: Antibiotic Form, Sinusitis (ED) Additional Instructions: Your strep test was negative today. Take antibiotic as prescribed to treat bacterial sinusitis until gone. Take Tylenol or ibuprofen every 6-8 hours as needed for pain and fever. Drink at least 64 oz of water a day. Follow-up your primary care physician if symptoms are not improving. Prescriptions: New doxycycline hyclate 100 mg capsule 100 mg PO BID 7 Days Qty: 14 0RF benzonatate 200 mg capsule 200 mg PO TID PRN (Reason: cough) Qty: 20 0RF fluticasone propionate [Flonase Allergy Relief] 50 mcg/actuation spray,suspension 1 spray intranasal BID Qty: 16 0RF Rx Instructions: administer into each nostril loratadine [Claritin] 10 mg tablet 10 mg PO DAILY Qty: 30 0RF No Action fluoxetine [Prozac] 40 mg Capsule 40 mg PO DAILY Nexplanon 68 mg Implant 1 implant SUBDERMAL ONCE cyclobenzaprine 10 mg tablet 10 mg PO TID PRN (Reason: muscle spasm) Qty: 30 0RF Follow-up/Referrals: PHYSICIAN,PRODUCTION ARTIST [Primary Care Provider] - Time of Disposition: 13:02
== END 2024-09-19 13:18 | disposition home or self-care (01) ==
PROVIDERS: Emergency Provider Nurse Practitioner Family
DX: J01.90 Acute sinusitis, unspecified (principal); B96.89 Other specified bacterial agents as the cause of diseases classified elsewhere; F17.210 Nicotine dependence, cigarettes, uncomplicated
CPT/HCPCS: 87081; 87880; 99213; G0463